=== PATIENT | male | born 1955 | race Caucasian/White ===

== ENCOUNTER → 2017-01-15 | Outpatient (CLI) | payer BC ==
[~2017-01-15] MED LIST: ASPCH81X PO; B-COTAB18 PO; CHOL100010 PO; COEN100C7 PO; VITACAP26 PO
--- NOTE | 2017-01-15 12:17 | DIAGNOSTIC IMAGING REPORT ---
CERVICAL SPINE 4 OR 5 VIEWS CLINICAL HISTORY: 61 years-old Male presenting with LEFT SIDED NECK PAIN S/P INJURY. TECHNIQUE: Frontal, bilateral oblique, lateral, and open-mouth odontoid views of the cervical spine were obtained. COMPARISON: None. FINDINGS: Straightening of normal cervical lordosis. Vertebral body heights are essentially maintained. Intervertebral disc height loss at C5-6 and C6-7. The C7 vertebral body is fully visualized. No radiographic evidence of acute fracture or subluxation. Multilevel degenerative changes in the lower cervical spine. Multilevel osseous neural foraminal narrowing may be present, most pronounced in the lower cervical region. The lateral masses of C1 articulate normally with C2. No predental interval widening. No prevertebral soft tissue swelling. IMPRESSION: 1. No radiographic evidence of acute fracture or subluxation. 2. Multilevel degenerative changes. Straightening of normal cervical lordosis likely related to degenerative change. Electronically signed by: Cesar Ma M.D. 01/15/2017 12:16 PM Dictated Date/Time: 01/15/2017 12:13 PM
== END | disposition home or self-care (01) ==
LOC: C.RDSM 16:10
PROVIDERS: ATTEND Physician Assistant
DX: M54.2 Cervicalgia (principal)

== ENCOUNTER → 2017-07-04 | Outpatient (CLI) | payer BC ==
--- NOTE | 2017-07-04 10:39 | DIAGNOSTIC IMAGING REPORT ---
MRI OF THE LEFT ANKLE WITHOUT IV CONTRAST CLINICAL HISTORY: Left ankle pain. Peroneal tendinitis. COMPARISON STUDY: MRI of the left ankle dated 10/06/2014. Radiographs of the left foot dated 09/28/2014. TECHNIQUE: MRI of the left ankle is performed utilizing various T1 and T2-weighted sequences in the axial, sagittal, and coronal planes. IV contrast was not administered for this examination. Note that interpretation is suboptimal without current plain film correlate. FINDINGS: There is no MRI evidence of fracture. The ankle mortise is intact. No osteochondral defect is seen in the talar dome. A 5 mm cystic focus is incidentally noted within the cuboid. This is unchanged from the 2015 examination and there is no surrounding marrow edema. Mild marrow edema is identified within the lateral aspect of the calcaneus adjacent the peroneal tendons. There is tendinopathy with mild partial-thickness tearing seen involving the peroneus brevis tendon. The peroneus longus tendon is thickened and heterogeneous with high-grade partial-thickness tearing. The majority of the fibers remain intact. There is fluid around the peroneal tendons as they pass adjacent to the calcaneus. A large anterolateral calcaneal spur may impinge on the transiting peroneal tendons, best seen on axial image #24. This was also seen radiographically on prior examinations. Mild overlying soft tissue edema is also seen at this site. There is a small ankle joint effusion. Normal fat is maintained within the sinus tarsi. The anterior tibiofibular and talofibular ligaments appear intact. The deltoid and spring ligaments are normal as imaged. The plantar fascia is normal in appearance. The Achilles tendon is normal in morphology. There is mild fluid around the Achilles tendon distally which may reflect mild paratenonitis. The anterior and posterior ankle tendons are maintained. The regional musculature is normal in bulk and signal intensity. IMPRESSION: 1. There is tendinopathy with high-grade partial-thickness tearing involving the peroneus longus tendon and mild partial-thickness tearing involving the peroneus brevis tendon. Fluid is present around the tendons indicating tenosynovitis and there is overlying soft tissue edema. 2. There is a large spur arising from the anterolateral aspect of the calcaneus with associated marrow edema. This is located immediately adjacent to the transiting peroneal tendons, and friction/impingement from the spur may be related to the peroneal tendinopathy. 3. A 5 mm cystic focus is incidentally noted within the cuboid. This is unchanged from 2015 and of doubtful significance. 4. Question mild Achilles paratenonitis. Clinical correlation will be required. 5. Small joint effusion. Electronically signed by: John Rogers M.D. 07/04/2017 10:38 AM Dictated Date/Time: 07/04/2017 10:26 AM
== END | disposition home or self-care (01) ==
LOC: C.MRI 09:36
PROVIDERS: ATTEND Podiatrist
DX: M85.672 Other cyst of bone, left ankle and foot (principal); M76.72 Peroneal tendinitis, left leg

== ENCOUNTER → 2017-07-18 | Outpatient (CLI) | payer BC | END | disposition home or self-care (01) | LOC: C.CPL 13:00 | PROVIDERS: ATTEND Physician Assistant | DX: Z01.818 Encounter for other preprocedural examination (principal); I49.3 Ventricular premature depolarization ==